=== PATIENT | female | born 1995 | race African-American/Black ===

== ENCOUNTER 2017-03-06 16:40 | Emergency (ER) | payer OTHER ==
[~2017-03-06] VITALS: Ht 157.5 cm; Wt 68.5 kg
[~2017-03-06 16:40] MED LIST: PRENCAP6 PO; ZOFR4TAB3 SL
--- NOTE | 2017-03-06 17:49 | PD ---
HPI Chief Complaint Lower abdominal cramping decreased movement Date Seen: Mar 06, 2017 Time Seen: 17:40 Travel History International Travel<30 Days: No Contact w/Intl Traveler<30Days: No Known Affected Area: No History of Present Illness HPI Patient 21-year-old black female previous 1 now 28 weeks gestation who presents complaining of lower abdominal pain bilaterally. She denies bleeding or rupture the membranes. The she is having no regular contractions at this time. Patient sees a doctor in [place]. Weeks Gestation: 28 Para: 3 : 4 Last Menstrual Period: Mar 06, 2017 History Obstetric History Obstetric History Patient had a previous and 2 vaginal deliveries. She had a twin gestation and one of those babies and I believe was the delivery that that occurred In this this baby has been immune system disorder [HLH] this requiring an amniocentesis Past Surgical History Narrative Surgical 1 Social History Alcohol Use: No Tobacco Use: No Substance Abuse: No Allergies-Medications (Allergen,Severity, Reaction): Coded Allergies: No Known Allergies (Unverified , 01/15/16) Home Meds Active Scripts Mv & Min W/Fe Fumarat ( 1) 30 Mg-975 Mcg-200 Mg Cap, 1 CAP PO DAILY for 30 Days, CAP Prov:Linda Solis 12/04/15 Discontinued Scripts Ondansetron (Zofran ODT) 4 Mg Tab, 4 MG SL Q6H Y for hyperemesis gravidarum, #4 TAB FOR NAUSEA/VOMITING Prov:Elder Myrick MD 01/15/16 Review of Systems General / Constitutional: No: Fever, Weight Gain, Chills, Other Eyes: No: Diploplia, Blurred Vision, Visual changes, Pain, Photophobia HENT: No: Headaches, Vertigo, Lightheadedness Cardiovascular: No: Irregular Rhythm, Chest Pain or Discomfort, Palpitations, Tachycardia, Syncope, Varicosities, Edema, Cyanosis Respiratory: No: Cough, Short of Breath, Other Gastrointestinal: Abdominal Pain, No: Nausea, Vomiting, Diarrhea Genitourinary: No: Decreased Urinary Output, Oliguria Musculoskeletal: No: Limited ROM, Weakness, Cramping, Edema, Pain Skin: No Rash, No Itching, No Dryness, No Lumps, No Change in Pigmentation, No Change in Nails, No Alopecia, No Lesions Neurologic: No: Weakness, Dizziness, Syncope, Focal Abnormalities, Coordination Problem, Headache, Slurred Speech, Seizures Psychiatric: No: Depression, Suicidal Ideations, Homicidal Ideation Endocrine: No: Heat Intolerance, Cold Intolerance, Polydipsia, Polyuria, Other Physical Exam Narrative GENERAL: Well-nourished, well-developed patient. SKIN: Warm and dry. HEAD: Normocephalic and atraumatic. EYES: No scleral icterus. No injection or drainage. ENT: No nasal drainage noted. Mucous membranes pink. Airway patent. NECK: Supple, trachea midline. No JVD. CARDIOVASCULAR: Regular rate and rhythm without murmurs, gallops, or rubs. RESPIRATORY: Breath sounds equal bilaterally. No accessory muscle use. BREASTS: Bilateral exam showed no masses , no retractions, no nipple discharge. ABDOMEN/GI: Abdomen soft, non-tender, bowel sounds present, no rebound, no guarding Gravid to [28-] weeks size Fundal Height: [28-] GENITOURINARY: External Genitalia: intact and normal in appearance BUS glands: [-] Cervix: [Posterior-] Dilatation: [-Closed] Effacement: [-] thick Station: [-3] Membranes: [intact Uterine Contractions: [-none] FHT's: Category: [1-] Baseline: [133-] Reactive: [yes-] Variability: [mod-] Decels: [-none] EXTREMITIES: No cyanosis or edema. BACK: Nontender without obvious deformity. No CVA tenderness. NEUROLOGICAL: Awake and alert. Motor and sensory grossly within normal limits. Five out of 5 muscle strength in all muscle groups. Normal speech. Data Data Labs Urine dip negative here on OB ED MDM Interpretation(s) Patient is a 21-year-old black female previous 1 now 28 weeks who presents complaining abdominal pain decreased movement. On OB ED her NST is reactive and no contractions. She denies bleeding or leakage of fluid. Her cervix is closed thick and high. She sees in [place] but may deliver here because of this baby has some type of immune disorder called HLH and that may require delivering in [place]. Plan Plan to discharge patient home to bedrest, oral Tylenol, increase her liquids for hydration, heating pad on lower abdomen or hot bath for symptoms. And if symptoms persist she's follow-up with her OB provider Diagnosis Diagnosis: Primary Impression: Abdominal pain during in third trimester Additional Impressions: Previous section Decreased movement affecting management of in third trimester Disposition: 01 DISCHARGE HOME Condition: Stable Mamadou Joyce II, MD Mar 06, 2017 17:49
== END 2017-03-06 18:01 | disposition home or self-care (01) ==
LOC: HOBED 16:40
DX: O36.8130 Decreased fetal movements, third trimester, not applicable or unspecified (principal); R10.9 Unspecified abdominal pain; Z3A.28 28 weeks gestation of pregnancy; Z79.899 Other long term (current) drug therapy
CPT/HCPCS: 99283

== ENCOUNTER 2017-03-28 16:17 | Emergency (ER) | payer OTHER ==
[~2017-03-28] VITALS: Ht 157.5 cm; Wt 68.0 kg
[~2017-03-28 16:17] MED LIST changes: -ZOFR4TAB3 SL
[2017-03-28] MEDS ORDERED: LACTATED RINGER'S 1000 ML INJ 1,000 ML IV ONE ×2 (17:00→20:00)
--- NOTE | 2017-03-28 18:14 | PD ---
HPI Chief Complaint painful contractions Travel History International Travel<30 Days: No Contact w/Intl Traveler<30Days: No Known Affected Area: No History of Present Illness HPI Patient is a @31 weeks who presents with painful contractions. States they started 2 hours ago and are occurring 5 min apart. Denies vaginal bleeding, leakage of fluid. Endorses movement. Has been continuing pre-prosper care. Follows with Dr. Olguin at [facility]. She states she is a high-risk patient because her fetus has HLH ( hemophagocytic lymphohistiocytosis disease). Has had a previous of twins in 2016 where one twin from HLH this past year. History Past Medical History Medical History: Denies Significant Hx Obstetric History Obstetric History 2010 Vaginal delivery ~7lbs, no complications 2013 vaginal ~7lbs, no complications 2015 twins : delivered at 13 weeks via , both this past year. One of the twins had hydrocephalus and HLH. Past Surgical History Surgical History: No Previous Surgery Family History Family History: Negative Social History Alcohol Use: No Tobacco Use: No Substance Abuse: No Allergies-Medications (Allergen,Severity, Reaction): Coded Allergies: No Known Allergies (Unverified , 03/28/17) Home Meds Active Scripts Mv & Min W/Fe Fumarat ( 1) 30 Mg-975 Mcg-200 Mg Cap, 1 CAP PO DAILY for 30 Days, CAP Prov:Linda Solis 12/04/15 Review of Systems Except as stated in HPI: all other systems reviewed are Neg Physical Exam Narrative GENERAL: Well-nourished, well-developed patient. SKIN: Warm and dry. HEAD: Normocephalic and atraumatic. EYES: No scleral icterus. No injection or drainage. ENT: No nasal drainage noted. Airway patent. CARDIOVASCULAR: Regular rate and rhythm without murmurs, gallops, or rubs. RESPIRATORY: Breath sounds equal bilaterally. No accessory muscle use. ABDOMEN/GI: Abdomen soft, non-tender, no rebound, no guarding Gravid to 31 weeks GENITOURINARY: External Genitalia: intact and normal in appearance Cervix: posterior Dilatation: closed Effacement: 0 Membranes: intact Uterine Contractions: q5min FHT's: Category: 1 Baseline: 130 Reactive: yes Variability: moderate Decels: no EXTREMITIES: No cyanosis or edema. NEUROLOGICAL: Awake and alert. Motor and sensory grossly within normal limits. Data Data Vital Signs Reviewed: Yes Orders Orders Vital Signs (Adult) .ON ADMISSION (03/28/17 16:57) ^ Labor Status (03/28/17 16:57) Lactated Ringer's 1000 Ml Inj (Lr 1000 M (03/28/17 17:00) Ob/Psych Drug Screen, Urine (03/28/17 16:59) Urinalysis - C+S If Indicated (03/28/17 16:59) Us Ob Pelvis >14 Wks Fetus (03/28/17 ) Labs Laboratory Tests Test 03/28/17 16:53 MDM Interpretation(s) @31 weeks w/hx of delivery and high-risk admitted for painful contractions. Allen regularly. Reassuring FHTs, no cervical change. Will work-up contractions. Plan - fluid bolus LR - urine drug screen - transvag U/S - U/A - encourage hydration - will monitor SWDW Dr. Higginbotham and Vanessa Em MD R1 Mar 28, 2017 18:14
[2017-03-28 18:30] LABS: BLOOD, URINE NEG (NEG); COMMENT (UR) CULT NOT INDICATED; CULTURE IF INDICATED CULT NOT INDICATED; GLUCOSE,URINE NEG (NEG); KETONE, URINE NEG (NEG); NITRITE,URINE NEG (NEG); PH, URINE 7.5 (5.0-8.5); SQUAMOUS EPITHELIAL CELL URINE 1 /hpf (0-5); URINE COLOR LIGHT-YELLOW (YELLW/STRAW)
[2017-03-28] MEDS ORDERED: TERBUTALINE INJ 1 MG/ML AMP ONE (18:59)
[2017-03-28] MEDS ORDERED: TERBUTALINE INJ 1 MG/ML AMP SQ ONE ×3 (19:15→20:30)
[2017-03-28 19:46] VITALS: BP 103/50; PULSE 97
[2017-03-28 19:50] VITALS: RESP 18
[2017-03-28 20:31] VITALS: BP 103/52; PULSE 110
[2017-03-28 20:41] VITALS: RESP 18
--- NOTE | 2017-03-28 21:34 | PD ---
HPI Travel History International Travel<30 Days: No Contact w/Intl Traveler<30Days: No Known Affected Area: No History of Present Illness HPI The patient is 21-year-old 4 para 2112 with IUP at 31 weeks. She presented complaining of contractions. She has had a reassuring heart rate tracing throughout. Her initial vaginal exam was closed thick and high but it fibronectin was not obtained. Therefore a cervical length was obtained which is 4.93. Due to persistent contractions the patient has been reexamined 2 additional times with a cervical exam of closed/thick/high, and posterior both times by myself. Patient's contractions resolved with subcutaneous terbutaline and she is no longer feeling more contractions. She has an appointment tomorrow with her maternal medicine. She was given strict labor precautions. Allergies-Medications (Allergen,Severity, Reaction): Coded Allergies: No Known Allergies (Unverified , 03/28/17) Home Meds Active Scripts Mv & Min W/Fe Fumarat ( 1) 30 Mg-975 Mcg-200 Mg Cap, 1 CAP PO DAILY for 30 Days, CAP Prov:Linda Solis 12/04/15 Review of Systems Except as stated in HPI: all other systems reviewed are Neg Physical Exam Narrative See resident note Data Data Orders Orders Vital Signs (Adult) .ON ADMISSION (03/28/17 16:57) ^ Labor Status (03/28/17 16:57) Lactated Ringer's 1000 Ml Inj (Lr 1000 M (03/28/17 17:00) Ob/Psych Drug Screen, Urine (03/28/17 16:59) Urinalysis - C+S If Indicated (03/28/17 16:59) Us Ob Pelvis >14 Wks Fetus (03/28/17 ) Terbutaline Inj (Brethine Inj) (03/28/17 18:59) Terbutaline Inj (Brethine Inj) (03/28/17 19:15) Terbutaline Inj (Brethine Inj) (03/28/17 20:00) Lactated Ringer's 1000 Ml Inj (Lr 1000 M (03/28/17 20:00) Terbutaline Inj (Brethine Inj) (03/28/17 20:30) Labs Laboratory Tests Test 03/28/17 16:53 Urine Color LIGHT-YELLOW Urine Turbidity CLOUDY Urine pH 7.5 Urine Specific Mccloud 1.013 Urine Protein NEG Urine Glucose (UA) NEG Urine Ketones NEG Urine Occult Blood NEG Urine Nitrite NEG Urine Bilirubin NEG Urine Urobilinogen LESS THAN 2.0 Urine Leukocyte Esterase TRACE Urine WBC 1 Urine Squamous Epithelial Cells 1 Urine Amorphous Sediment RARE Microscopic Urinalysis Comment CULT NOT INDICATED Urine Opiates Screen NEG Urine Barbiturates Screen NEG Urine Amphetamines Screen NEG Urine Benzodiazepines Screen NEG Urine Cocaine Screen NEG Urine Cannabinoids Screen NEG MDM Plan Assessment/plan: 1. IUP at 31 weeks 2. contractions: No evidence labor with serial examinations and remained closed/thick/high and patient posterior. Transvaginal cervical length was 4.9 cm. Strict labor precautions 3. well-being: Reassuring testing with NST this reactive for gestational age. FHR reassuring and appropriate for gestational age. kick counts daily 4. History of prior delivery: We discussed she would be a night detail candidate for a trial of labor/ with her history of 2 previous deliveries. Patient is very interested in a and will consider this option. We discussed necessary factors to safely including hospital delivery in the hospital with 24-hour physician and anesthesia coverage 5. Fetus with HL H: Follow up with primary OB/high risk physician 6. Follow up in 1 day as scheduled or sooner if needed Diagnosis Diagnosis: Primary Impression: 31 weeks gestation of Additional Impression: Threatened premature labor Disposition: 01 DISCHARGE HOME Condition: Good Patient Instructions: General Instructions, Labor (ED), Movement (ED), Abdominal Pain in (ED), Early Labor Signs (ED) Departure Forms: Tests/Procedures Tanvi Judge MD Mar 28, 2017 21:34
[2017-04-03 09:34] LABS: HEROIN (6-ACETYLMORPHINE) UR NEG (NEG); OBMETHADONE UR NEG (NEG); PHENCYCLIDINE URINE NEG (NEG)
[2017-04-03 09:35] LABS: BATH SALTS (MDPV) UR NEG (NEG); ECSTASY (MDMA) UR NEG (NEG); GABAPENTIN UR NEG (NEG); HYDROMORPHONE U NEG (NEG); K2 SPICE UR NEG (NEG)
== END 2017-03-28 21:45 | disposition home or self-care (01) ==
LOC: HOBED 16:17
DX: O60.03 Preterm labor without delivery, third trimester (principal); Z3A.31 31 weeks gestation of pregnancy
CPT/HCPCS: 76805; 76817; 80307; 81001; 96360; 96372; 99285; G0481; J3105; J7120

== ENCOUNTER 2017-04-11 04:03 | Emergency (ER) | payer OTHER ==
--- NOTE | 2017-04-11 04:40 | PD ---
HPI Chief Complaint ctx Date Seen: Apr 11, 2017 Time Seen: 04:32 Travel History International Travel<30 Days: No Contact w/Intl Traveler<30Days: No Known Affected Area: No History of Present Illness HPI Pt is a @ 33.0wks who presents with c/o ctx. She states that they have been every few minutes since 10pm. She has been taking adeqaute PO water, no N/ V/D. She reports good FM, no LOF or VB. Last sex was 1m ago. Pt has PNC in [place]. is complicated by HLH with plans for delivery in [place] with immediate bone marrow transplant. Weeks Gestation: 33 Para: 3 : 4 History Past Medical History Medical History: Denies Significant Hx Obstetric History Obstetric History G1. @ term G2. @ term G3. 1'CS for hydrocephalus in the context of HLH, twin demise @ 13wks, demise @ 3m G4. current, fetus with known HLH, for delivery in [place] with immediate bone marrow transplant Past Surgical History Narrative Surgical CSx1 Family History Family History: Negative Social History Alcohol Use: No Tobacco Use: No Substance Abuse: No Allergies-Medications (Allergen,Severity, Reaction): Coded Allergies: No Known Allergies (Unverified , 03/28/17) Home Meds Active Scripts Mv & Min W/Fe Fumarat ( 1) 30 Mg-975 Mcg-200 Mg Cap, 1 CAP PO DAILY for 30 Days, CAP Prov:Linda Solis 12/04/15 Review of Systems Except as stated in HPI: all other systems reviewed are Neg Physical Exam Narrative GENERAL: Well-nourished, well-developed patient. SKIN: Warm and dry. HEAD: Normocephalic and atraumatic. EYES: No scleral icterus. No injection or drainage. ENT: No nasal drainage noted. Mucous membranes pink. Airway patent. ABDOMEN/GI: Abdomen soft, non-tender, gravid EXTREMITIES: No cyanosis or edema. NEUROLOGICAL: Awake and alert. Motor and sensory grossly within normal limits. Normal speech. FHT's: Category: 1 Baseline: 130 Reactive: yes Variability: moderate Decels: occasional age appropriate mild variables TOCO: quiet CERVIX: externally multiparous/dilated; internally closed, thick, -3 Data Data Vital Signs Reviewed: Yes Orders Orders Vital Signs (Adult) .ON ADMISSION (04/11/17 04:26) ^ Labor Status (04/11/17 04:26) ^ Non Stress Test (04/11/17 04:26) MDM Plan 21y/o with h/o CSx1, loss from HLH, current fetus affected by HLH, presents with ctx. -- no ctx on toco -- cvx cl/th/hi -- UA neg Stable for d/c home. Encouraged PO hydration for Jose Miguel Traore. Diagnosis Diagnosis: Primary Impression: Additional Impressions: 33 weeks gestation of Uterine contractions during History of delivery, currently abnormality in , antepartum Disposition: 01 DISCHARGE HOME Fani Chew MD Apr 11, 2017 04:40
== END 2017-04-11 05:20 | disposition home or self-care (01) ==
LOC: HOBED 04:03
DX: O26.93 Pregnancy related conditions, unspecified, third trimester (principal); Z3A.33 33 weeks gestation of pregnancy
CPT/HCPCS: 59025

== ENCOUNTER 2017-04-19 13:44 | Emergency (ER) | payer OTHER ==
--- NOTE | 2017-04-19 14:29 | HHI.HP ---
HPI Chief Complaint Decreased movement, contractions Travel History International Travel<30 Days: No Contact w/Intl Traveler<30Days: No History of Present Illness HPI 21yr old at 34/1 weeks presents with decreased movement and irregular contractions. She reports that her contractions began last night, occurring about every 4 min. Her biggest concern was not feeling her baby move last night. She denies vaginal bleeding, leakage of fluid, CP, and SOB. She is receiving her care at [facility] due to complication of Hemophagocytic Lymphohistiocytosis (HLH). History Past Medical History Medical History: Denies Significant Hx Obstetric History Obstetric History 21yr old at 34/1 weeks 2VDs, 1C-section Last was twins gestation, 1 twin at , 1 twin this Aug. from HLH Past Surgical History Narrative Surgical Family History Family History: Negative Social History Alcohol Use: No Tobacco Use: No Substance Abuse: No Allergies-Medications (Allergen,Severity, Reaction): Coded Allergies: No Known Allergies (Unverified , 03/28/17) Home Meds Active Scripts Mv & Min W/Fe Fumarat ( 1) 30 Mg-975 Mcg-200 Mg Cap, 1 CAP PO DAILY for 30 Days, CAP Prov:Linda Solis 12/04/15 Review of Systems Except as stated in HPI: all other systems reviewed are Neg Physical Exam Narrative GENERAL: Well-nourished, well-developed patient. SKIN: Warm and dry. HEAD: Normocephalic and atraumatic. EYES: No scleral icterus. No injection or drainage. ENT: No nasal drainage noted. Mucous membranes pink. Airway patent. NECK: Supple, trachea midline. No JVD. CARDIOVASCULAR: Regular rate and rhythm without murmurs, gallops, or rubs. RESPIRATORY: Breath sounds equal bilaterally. No accessory muscle use. ABDOMEN/GI: Abdomen soft, non-tender, bowel sounds present, no rebound, no guarding DIGITAL EXAM: FHT's: Category: [-] Baseline: [-] Reactive: [-] Variability: [-] Decels: [-] EXTREMITIES: No cyanosis or edema. BACK: Nontender without obvious deformity. No CVA tenderness. NEUROLOGICAL: Awake and alert. Motor and sensory grossly within normal limits. Five out of 5 muscle strength in all muscle groups. Normal speech. Caprini VTE Risk Assessment Caprini Risk Assessment Model Point Value = 1 Point Value = 2 Point Value = 3 Point Value = 5 Age 41-60 Minor surgery BMI > 25 kg/m2 Swollen legs Varicose veins or History of unexplained or recurrent spontaneous Oral contraceptives or hormone replacement Sepsis (< 1 month) Serious lung disease, including pneumonia (< 1 month) Abnormal pulmonary function Acute myocardial infarction Congestive heart failure (< 1 month) History of inflammatory bowel disease Medical patient at bed rest Age 61-74 Arthroscopic surgery Major open surgery (> 45 min) Laparoscopic surgery (> 45 min) Malignancy Confined to bed (> 72 hours) Immobilizing plaster cast Central venous access Age >= 75 History of VTE Family history of VTE Factor V Leiden Prothrombin [id number] Lupus anticoagulant Anticardiolipin antibodies Elevated serum homocysteine Heparin-induced thrombocytopenia Other congenital or acquired thrombophilia Stroke (< 1 month) Elective arthroplasty Hip, pelvis, or leg fracture Acute spinal cord injury (< 1 month) Prophylaxis Regimen Total Risk Factor Score Risk Level Prophylaxis Regimen 0-1 Low Early ambulation 2 Moderate Order ONE of the following: *Sequential Compression Device (SCD) *Heparin 5000 units SQ BID 3-4 Higher Order ONE of the following medications: *Heparin 5000 units SQ TID *Enoxaparin/Lovenox 40 mg SQ daily (WT < 150 kg, CrCl > 30 mL/min) *Enoxaparin/Lovenox 30 mg SQ daily (WT < 150 kg, CrCl > 10-29 mL/min) *Enoxaparin/Lovenox 30 mg SQ BID (WT < 150 kg, CrCl > 30 mL/min) AND/OR *Sequential Compression Device (SCD) 5 or more Highest Order ONE of the following medications: *Heparin 5000 units SQ TID (Preferred with Epidurals) *Enoxaparin/Lovenox 40 mg SQ daily (WT < 150 kg, CrCl > 30 mL/min) *Enoxaparin/Lovenox 30 mg SQ daily (WT < 150 kg, CrCl > 10-29 mL/min) *Enoxaparin/Lovenox 30 mg SQ BID (WT < 150 kg, CrCl > 30 mL/min) AND *Sequential Compression Device (SCD) Piper Belle MD R1 Apr 19, 2017 14:29
--- NOTE | 2017-04-19 14:30 | PD ---
HPI Travel History International Travel<30 Days: No Contact w/Intl Traveler<30Days: No Known Affected Area: No (Piper Belle MD R1) History of Present Illness HPI 21yr old at 34/1 weeks presents with decreased movement and irregular contractions. She reports that her contractions began last night, occurring about every 4 min. Her biggest concern was not feeling her baby move last night. She denies vaginal bleeding, leakage of fluid, CP, and SOB. She is receiving her care at [facility] due to complication of Hemophagocytic Lymphohistiocytosis (HLH). (Piper Belle MD R1) Allergies-Medications (Allergen,Severity, Reaction): Coded Allergies: No Known Allergies (Unverified , 03/28/17) Home Meds Active Scripts Mv & Min W/Fe Fumarat ( 1) 30 Mg-975 Mcg-200 Mg Cap, 1 CAP PO DAILY for 30 Days, CAP Prov:Linda Solis 12/04/15 Physical Exam Narrative GENERAL: Well-nourished, well-developed patient. SKIN: Warm and dry. HEAD: Normocephalic and atraumatic. EYES: No scleral icterus. No injection or drainage. ENT: No nasal drainage noted. Mucous membranes pink. Airway patent. NECK: Supple, trachea midline. No JVD. CARDIOVASCULAR: Regular rate and rhythm without murmurs, gallops, or rubs. RESPIRATORY: Breath sounds equal bilaterally. No accessory muscle use. ABDOMEN/GI: Abdomen soft, non-tender, bowel sounds present, no rebound, no guarding DIGITAL EXAM: closed, normal cervix FHT's: Category: 1 Baseline: 120s Reactive: yes Variability: moderate Decels: no EXTREMITIES: No cyanosis or edema. BACK: Nontender without obvious deformity. NEUROLOGICAL: Awake and alert. Motor and sensory grossly within normal limits. (Piper Belle MD R1) Data Data Vital Signs Reviewed: Yes (Piper Belle MD R1) MDM Narrative Course / MDM 21yr old at 34/1 weeks presents with Liberty Traore contractions 1. IUP FHTs, category 1, baseline 120s, reactive Continue with care at [facility] 2. Jose Miguel Traore Irregular contractions Hydrate by drinking plenty of fluids Tylenol and heating pad for pain (Piper Belle MD R1) Attending Attestation Patient seen and evaluated with resident under direct supervision, agree with assessment and plan. (Tesfaye Stack MD) Diagnosis Diagnosis: Primary Impression: Jose Miguel Traore contractions Disposition: 01 DISCHARGE HOME Condition: Good Patient Instructions: Early Labor Signs (ED), Movement (ED) Piper Belle MD R1 Apr 19, 2017 14:30 Tesfaye Stack MD Apr 19, 2017 15:27
== END 2017-04-19 15:21 | disposition home or self-care (01) ==
LOC: HOBED 13:44
DX: O47.03 False labor before 37 completed weeks of gestation, third trimester (principal); Z3A.34 34 weeks gestation of pregnancy
CPT/HCPCS: 59025

== ENCOUNTER 2017-05-10 11:02 | Emergency (ER) | payer OTHER ==
--- NOTE | 2017-05-10 11:50 | PD ---
HPI Chief Complaint Possibly leaking fluid Date Seen: May 10, 2017 Time Seen: 11:45 Travel History International Travel<30 Days: No Contact w/Intl Traveler<30Days: No Known Affected Area: No History of Present Illness HPI 22-year-old 4 para 3 living children 2 at 37 weeks 1 day gestation who comes today for concerns of leaking fluid. She denies any bleeding. She reports mild contractions. She notes good movement. History Past Medical History Medical History: Denies Significant Hx Obstetric History Obstetric History 2 prior vaginal deliveries, her last was delivered by and subsequent demise of that child secondary to HLH She receives care in [place] and has been instructed to deliver at [facility] due to diagnosis of H LH. Past Surgical History Narrative Surgical Family History Family History: Negative Social History Alcohol Use: No Tobacco Use: No Substance Abuse: No Allergies-Medications (Allergen,Severity, Reaction): Coded Allergies: No Known Allergies (Unverified , 03/28/17) Home Meds Active Scripts Mv & Min W/Fe Fumarat ( 1) 30 Mg-975 Mcg-200 Mg Cap, 1 CAP PO DAILY for 30 Days, CAP Prov:Linda Solis 12/04/15 Review of Systems Except as stated in HPI: all other systems reviewed are Neg Physical Exam Narrative GENERAL: Well-nourished, well-developed patient. SKIN: Warm and dry. HEAD: Normocephalic and atraumatic. EYES: No scleral icterus. No injection or drainage. ENT: No nasal drainage noted. Mucous membranes pink. Airway patent. NECK: Supple, trachea midline. No JVD. CARDIOVASCULAR: Regular rate and rhythm without murmurs, gallops, or rubs. RESPIRATORY: Breath sounds equal bilaterally. No accessory muscle use. ABDOMEN/GI: Abdomen soft, non-tender, bowel sounds present, no rebound, no guarding Gravid to [-] weeks size Fundal Height: [-] GENITOURINARY: External Genitalia: intact and normal in appearance BUS glands: [-] Cervix: [-] Dilatation: [Closed-] Effacement: [Long-] Station: [--3] Presentation: [-] Membranes: [intact ] Uterine Contractions: [Mild irregular-] FHT's: Category: [-1] Baseline: [-] Reactive: [Yes-] Variability: [-] Decels: [-] EXTREMITIES: No cyanosis or edema. BACK: Nontender without obvious deformity. No CVA tenderness. NEUROLOGICAL: Awake and alert. Motor and sensory grossly within normal limits. Five out of 5 muscle strength in all muscle groups. Normal speech. MDM Medical Record Reviewed: Yes Narrative Course / MDM Assessment: 37+ week multipara with no evidence of ruptured membranes Plan: Recommended continued observation of recommendations. Diagnosis Diagnosis: Primary Impression: 37 weeks gestation of Additional Impression: rupture of membranes ruled out Disposition: 01 DISCHARGE HOME Condition: Good Tesfaye Stack MD May 10, 2017 11:49
== END 2017-05-10 12:13 | disposition home or self-care (01) ==
LOC: HOBED 11:02
DX: O47.1 False labor at or after 37 completed weeks of gestation (principal); Z3A.37 37 weeks gestation of pregnancy
CPT/HCPCS: 99282; J3010